=== PATIENT | female | born 1940 | race African-American/Black ===

== ENCOUNTER 2018-02-10 23:44 | Inpatient (IN) | payer MEDICARE ==
[2018-02-11] MEDS ORDERED: Furosemide 20 MG/2 ML VIAL ONE (00:31)
[2018-02-11] MEDS ORDERED: Nitroglycerin 2% Ointment 1 INCH/1 GM Packet ONE (00:31)
[2018-02-11] MEDS ORDERED: Nitroglycerin 0.4 MG TAB (25 Tab Bottle) ONE (00:31)
[2018-02-11 01:15] LABS: Troponin I 0.048 ng/mL (< 0.028)
[2018-02-11] MEDS ORDERED: Ondansetron ODT 4 MG TAB SL PRN (02:10)
[2018-02-11] MEDS ORDERED: Ondansetron HCl/PF 4 MG/2 ML Vial IVP PRN (02:10)
[2018-02-11] MEDS ORDERED: hydrALAZINE 20 MG/ML VIAL SLOW IVP PRN (02:12)
[2018-02-11 02:42] VITALS: BMI 32.8
[2018-02-11] MEDS ORDERED: Nitroglycerin 2% Ointment 1 INCH/1 GM Packet TOP SCH (03:00)
[2018-02-11 04:18] LABS: Troponin I 0.054 ng/mL (< 0.028)
[2018-02-11] MEDS ORDERED: Furosemide 40 MG/4 ML VIAL SLOW IVP SCH (06:00)
[2018-02-11] MEDS ORDERED: Potassium Chloride 20 MEQ TAB PO SCH (08:00)
[2018-02-11] MEDS ORDERED: Senokot 8.6 MG TAB PO PRN (11:01)
[2018-02-11] MEDS ORDERED: Acetaminophen 325 MG TAB PO PRN (11:01)
[2018-02-11] MEDS ORDERED: Guaifenesin DM 100-10/5 ML UDCUP PO PRN (11:01)
[2018-02-11] MEDS: Furosemide 40 MG/4 ML VIAL SLOW IVP SCH (14:30)
--- NOTE | 2018-02-11 16:25 | HP ---
REASON FOR ADMISSION: New onset congestive heart failure exacerbation and new onset atrial fibrillat ion which is rate controlled at present, demand ischemia. HISTORY OF PRESENTING ILLNESS: Patient gives history of swelling of both lower extremities from last 1 week. She also had orthopnea and was unable to sleep last night. She says her physician stopped hydrochlorothiazide in view of falling platelets. This was 3 weeks back. She has also been wheezing from last 2 days. The patient has not experienced any of this before. No complaints of chest pain or palpitation. She normally ambulates by herself. No prior stress test. PAST MEDICAL AND SURGICAL HISTORY: Hypertension. No surgical history. CURRENT MEDICATION: Lopressor 25 mg twice daily. ALLERGIES: PENICILLIN. PERSONAL HISTORY: Does not abuse alcohol or drugs. No history of smoking. FAMILY HISTORY: Mother in her 80s from old age. Father was alcoholic and in his 70s from its complications. The patient has one of 8 siblings, but only one is living. All the other 7 sibli ngs are , one had aneurysm in the brain. Another brother had lung cancer and was a heavy smo ker. Another sibling of old age at the age of 85 years. Had a brother who had cardiac disease and had a defibrillator, due to complications from heart disease at the age of 78 years. She mills s 2 children, older son of diabetes and its complications at the age of 56 years. CODE STATUS: FULL. Power of assistant county attorney is her daughter. REVIEW OF SYSTEMS: The following complete review of systems was negative, unless otherwise mentioned in the HPI or below: Constitutional: Weight loss or gain, ability to conduct usual activities. Skin: Rash, itching. Eyes: Double vision, pain. ENT/Mouth: Nose bleeding, neck stiffness, pain, tenderness. Cardiovascular: Palpitations, dyspnea on exertion, orthopnea. Respiratory: Shortness of breath, wheezing, cough, hemoptysis, fever or night sweats. Gastrointestinal: Poor appetite, abdominal pain, heartburn, nausea, vomiting, constipation, or diarr hea. Genitourinary: Urgency, frequency, dysuria, nocturia. Musculoskeletal: Pain, swelling. Neurologic/Psychiatric: Anxiety, depression. Allergy/Immunologic: Skin rash, bleeding tendency. PHYSICAL EXAMINATION: GENERAL: The patient is a 77-year-old female who is currently not in any acute distress. VITAL SIGNS: Blood pressure 170/76, pulse 76 per minute, respiratory rate 20 per minute, temperature 97.8 degrees Fahrenheit and saturating 94% on room air. NECK: Supple. There is mild elevation in JVD. EYES: Extraocular muscles intact. Pupils reacting to light. ORAL CAVITY: Mucous membranes are moist. No exudates or congestion. CARDIOVASCULAR SYSTEM: S1, S2 heard. Regular rhythm. RESPIRATORY SYSTEM: Air entry 2+ bilaterally. There are basal rales plus. ABDOMEN: Soft, bowel sounds heard. No tenderness, rigidity or guarding. EXTREMITIES: There is 1+ peripheral edema, no calf tenderness. VASCULAR SYSTEM: Peripheral pulses 1+ bilateral, no ischemic ulcerations or gangrene. CENTRAL NERVOUS SYSTEM: No gross focal deficits noted. Patient is alert, awake, oriented well. PSYCHIATRIC SYSTEM: The patient's mood is euthymic. No hallucinations or delusions. IMAGING DATA AND LABORATORY DATA: EKG done shows sinus bradycardia at 59 beats per minute. Her rhyt hm strips show questionable AFIB on the telemetry. White count of 8, hemoglobin and hematocrit 13 an d 42, platelet count 105 with 73% neutrophils, MCV is 85. PT, INR, and PTT within normal limits. Po tassium is 3.1. Serum sodium 147. Serum bicarbonate is 28, BUN 10, creatinine 0.9, total bilirubin 1.6. Liver enzymes within normal limits. Troponin I is indeterminate. She has indeterminate peakin g up to 0.05, CK-MB 1.9. Albumin is 4. BNP is 816. Chest x-ray done shows cardiomegaly. CLINICAL IMPRESSION AND PLAN: The patient will be admitted to telemetry for acute congestive heart f ailure exacerbation, new onset, possible atrial fibrillation and demand ischemia. We will place her on Lovenox 80 mg subcutaneous q.12 along with a low dose aspirin. She will be on Lasix 40 mg IV twic e daily along with small dose of Coreg and Cozaar for now. We will also add a small dose of spironol actone as well. Echo with 2D Doppler for LV function will be obtained. The patient likely will need a stress test at some point when she is more stable. Cardiology consultation with Dr. Hood will be requested today. We will obtain a TSH and uric acid levels in the morning. We will also obtain acute hepatitis panel in view of her thrombocytopenia.
[2018-02-11 17:36] LABS: Platelet Count 100 thou/uL (130-400)
[2018-02-11] MEDS ORDERED: Famotidine 20 MG TAB PO SCH (21:00)
[2018-02-11] MEDS: Carvedilol 3.125 MG TAB PO SCH (21:10)
[2018-02-11] MEDS: Enoxaparin Sodium 80 MG/0.8 ML SYRINGE SC SCH (21:11)
[2018-02-12 04:44] LABS: #Eosinphils 0.2 thou/uL (0.0-0.7); #Lymphocytes 1.4 thou/uL (1.20-3.40); #Monocytes 0.9 thou/uL (0.11-0.59); #Neutrophils 5.4 thou/uL (1.40-6.50); %Basophils 0.4 % (0.0-1.0); %Eosinophils 2.1 % (0.0-10.0); %Lymphocytes 17.9 % (21.0-51.0); %Monocytes 11.2 % (0.0-10.0); %Neutrophils 68.5 % (42.0-75.0); Hemoglobin 14.1 g/dL (12.0-16.0); Mean Corpuscular HGB CONC 32.2 g/dL (32.0-36.0); Mean Corpuscular Hemoglobin 28.4 pg (27.0-31.0); Mean Corpuscular Volume 88.2 fL (78.0-98.0); Platelet Count 94 thou/uL (130-400); RBC Distribution Width 13.3 % (11.5-14.5); Red Blood Cell (RBC) Count 4.96 mill/uL (4.20-5.40); White Blood Cell (WBC) Count 7.9 thou/uL (4.8-10.8)
[2018-02-12 04:53] LABS: Anion Gap 10 mmol/L (10-20); BUN (Urea Nitrogen) 11 mg/dL (9.8-20.1); Calc. Creatinine Clearance 72 mL/min (70-130); Calcium 9.5 mg/dL (7.8-10.44); Carbon Dioxide 37 mmol/L (23-31); Chloride 98 mmol/L (98-107); Estimated GFR-MDRD 68; Glucose 115 mg/dL (83-110); Sodium 142 mmol/L (136-145); Uric Acid 7.3 mg/dL (2.6-6.0)
[2018-02-12 04:56] LABS: Potassium 2.9 mmol/L (3.5-5.1)
[2018-02-12 05:07] LABS: HBCM Index 0.07 S/CO (0-0.79); Hep A IgM AB Non-Reactive (NonReactive); Hep A IgM S/CO 0.14 S/CO (0-0.79); Hep B Surf Ag Non-Reactive S/CO (NonReactive); Hep C IgG Ab Non-Reactive (NonReactive); Hep C Index 0.09 S/CO (0-0.79); Hepatitis B Core IGM Abs Non-Reactive (NonReactive); Thyroid Stimulating Hormone 1.3202 uIU/mL (0.35-4.94)
[2018-02-12] MEDS ORDERED: Potassium Chloride 20 MEQ TAB PO SCH (05:15)
[2018-02-12] MEDS: Furosemide 40 MG/4 ML VIAL SLOW IVP SCH ×2 (05:37→14:15)
[2018-02-12] MEDS: Enoxaparin Sodium 80 MG/0.8 ML SYRINGE SC SCH ×2 (09:23→21:56)
[2018-02-12] MEDS: Potassium Chloride 20 MEQ TAB PO SCH ×3 (09:29→21:57)
[2018-02-12] MEDS: Spironolactone 25 MG TAB PO SCH (09:30)
[2018-02-12] MEDS: Famotidine 20 MG TAB PO SCH (09:30)
[2018-02-12] MEDS: Losartan 25 MG TAB PO SCH (09:30)
[2018-02-12] MEDS: Carvedilol 3.125 MG TAB PO SCH ×2 (09:30→21:57)
--- NOTE | 2018-02-12 12:13 | PDOC.PN ---
- Subjective Encounter Start Date: 02/12/18 Encounter Start Time: 09:40 Subjective: sob is better, swelling in her feet and ankle are clearing up -: no chest pain or palp - Objective Resuscitation Status: Resuscitation Status FULL:Full Resuscitation MAR Reviewed: Yes Vital Signs & Weight: Vital Signs (12 hours) Temp Pulse Pulse Pulse Resp BP BP 02/12/18 11:01 98.7 F 83 18 02/12/18 08:46 81 93 133/86 166/86 H 02/12/18 08:00 98.1 F 68 18 02/12/18 03:57 97.5 F L 97 22 H BP Pulse Ox Pulse Ox Pulse Ox 02/12/18 11:01 117/66 93 L 02/12/18 08:46 93 L 93 L 02/12/18 08:00 126/72 94 L 02/12/18 03:57 138/71 94 L Weight Admit Weight 203 lb Weight 191 lb 8 oz I&O: 02/11/18 02/12/18 02/13/18 06:59 06:59 06:59 Intake Total 0 1060 240 Output Total 19995 Balance -1999131 240 Result Diagrams: 02/12/18 03:45 02/12/18 03:45 Phys Exam - Physical Examination HEENT: PERRLA, moist MMs Neck: no JVD, supple Respiratory: no wheezing basal rales+ Cardiovascular: RRR, no significant murmur Gastrointestinal: soft, non-tender, positive bowel sounds Musculoskeletal: no edema, pulses present Neurological: non-focal, moves all 4 limbs Psychiatric: normal affect, A&O x 3 Dx/Plan (1) Acute exacerbation of CHF (congestive heart failure) Code(s): I50.9 - HEART FAILURE, UNSPECIFIED Status: Acute Qualifiers: Heart failure type: unspecified Qualified Code(s): I50.9 - Heart failure, unspecified (2) HTN (hypertension) Code(s): I10 - ESSENTIAL (PRIMARY) HYPERTENSION Status: Chronic Qualifiers: Hypertension type: essential hypertension Qualified Code(s): I10 - Essential (primary) hypertension (3) Demand ischemia of myocardium Code(s): I24.8 - OTHER FORMS OF ACUTE ISCHEMIC HEART DISEASE Status: Acute - Plan await echo results, in sinus rhythm now -: may dc lovenox if ok with -: is on lasix iv, coreg, cozaar -: lipid panel in am, diuresing well -: will likely need stress test * . Review of Systems - Medications/Allergies Allergies/Adverse Reactions: Allergies Allergy/AdvReac Type Severity Reaction Status Date / Time penicillin G Allergy Rash Verified 02/11/18 02:53 Medications: Current Medications Acetaminophen (Tylenol) 650 mg PO Q4H PRN PRN Reason: Headache/Fever or Pain Aspirin (Aspirin Chewable) 81 mg PO DAILY [facility] Last Admin: 02/12/18 09:29 Dose: 81 mg Carvedilol (Coreg) 3.125 mg PO BID [facility] Last Admin: 02/12/18 09:30 Dose: 3.125 mg Enoxaparin Sodium (Lovenox) 80 mg SC 0900,2100 [facility] Last Admin: 02/12/18 09:23 Dose: Not Given Famotidine (Pepcid) 20 mg PO DAILY [facility] Last Admin: 02/12/18 09:30 Dose: 20 mg Furosemide (Lasix) 40 mg SLOW IVP 0600,1400 [facility] Last Admin: 02/12/18 05:37 Dose: 40 mg Guaifenesin/Dextromethorphan (Robitussin Dm) 15 ml PO Q4H PRN PRN Reason: Cough Losartan Potassium (Cozaar) 12.5 mg PO DAILY [facility] Last Admin: 02/12/18 09:30 Dose: 12.5 mg Potassium Chloride (K-Dur) 40 meq PO Q6H [facility] Stop: 02/13/18 14:01 Last Admin: 02/12/18 09:29 Dose: 40 meq Senna (Senokot) 2 tab PO HSPRN PRN PRN Reason: Constipation Spironolactone (Aldactone) 12.5 mg PO DAILY [facility] Last Admin: 02/12/18 09:30 Dose: 12.5 mg
[2018-02-12] MEDS ORDERED: Sodium Chloride 0.9% 10 ML ONE (20:25)
[2018-02-13] MEDS: Potassium Chloride 20 MEQ TAB PO SCH (03:32)
[2018-02-13 05:08] LABS: Anion Gap 17 mmol/L (10-20); BUN (Urea Nitrogen) 16 mg/dL (9.8-20.1); Calc. Creatinine Clearance 59 mL/min (70-130); Carbon Dioxide 29 mmol/L (23-31); Cardiac Risk 3.2 (Less than 4.5); Chloride 99 mmol/L (98-107); Cholesterol 167 mg/dl (< 200 Desired); Estimated GFR-MDRD 58; Glucose 85 mg/dL (83-110); HDL Cholesterol 53 mg/dL (>60 Neg Risk); LDL Cholesterol, Calculated 99 mg/dL; Potassium 4.7 mmol/L (3.5-5.1); Sodium 140 mmol/L (136-145); Triglycerides 77 mg/dL (Less than 150)
[2018-02-13] MEDS ORDERED: Sodium Chloride 0.9% 10 ML ONE ×2 (05:52→05:53)
[2018-02-13] MEDS: Furosemide 40 MG/4 ML VIAL SLOW IVP SCH (06:28)
--- NOTE | 2018-02-13 10:02 | PDOC.PN ---
- Subjective Encounter Start Date: 02/13/18 Encounter Start Time: 09:15 Subjective: no sob or chest pain or palp -: feels better, is amb in hallway - Objective Resuscitation Status: Resuscitation Status FULL:Full Resuscitation MAR Reviewed: Yes Vital Signs & Weight: Vital Signs (12 hours) Temp Pulse Resp BP BP Pulse Ox 02/13/18 08:58 98.7 F 81 20 122/87 97 02/13/18 03:32 97.7 F 78 20 169/92 H 96 02/12/18 23:58 98.7 F 73 16 134/83 95 Weight Admit Weight 203 lb Weight 192 lb 3.2 oz I&O: 02/12/18 02/13/18 02/14/18 06:59 06:59 06:59 Intake Total 1060 904 Output Total 9099 1970 1000 Balance -1315 -1796 -1000 Result Diagrams: 02/12/18 03:45 02/13/18 03:50 Phys Exam - Physical Examination HEENT: PERRLA, moist MMs Neck: no JVD, supple Respiratory: no wheezing, no rales Cardiovascular: RRR, no significant murmur Gastrointestinal: soft, non-tender, positive bowel sounds Musculoskeletal: no edema, pulses present Neurological: non-focal, moves all 4 limbs Psychiatric: normal affect, A&O x 3 Dx/Plan (1) Acute exacerbation of CHF (congestive heart failure) Code(s): I50.9 - HEART FAILURE, UNSPECIFIED Status: Acute Qualifiers: Heart failure type: diastolic Qualified Code(s): I50.33 - Acute on chronic diastolic (congestive) heart failure (2) HTN (hypertension) Code(s): I10 - ESSENTIAL (PRIMARY) HYPERTENSION Status: Chronic Qualifiers: Hypertension type: essential hypertension Qualified Code(s): I10 - Essential (primary) hypertension (3) Demand ischemia of myocardium Code(s): I24.8 - OTHER FORMS OF ACUTE ISCHEMIC HEART DISEASE Status: Acute - Plan ef is 50%, needs repeat echo due to poor quality per cardio -: dc plan per cardio advice -: will need outpt PFT's, has freq pac's on ekg -: stress test/cath per cardio advice -: dc plan per cardiology * . Review of Systems - Medications/Allergies Allergies/Adverse Reactions: Allergies Allergy/AdvReac Type Severity Reaction Status Date / Time penicillin G Allergy Rash Verified 02/11/18 02:53 Medications: Current Medications Acetaminophen (Tylenol) 650 mg PO Q4H PRN PRN Reason: Headache/Fever or Pain Aspirin (Aspirin Chewable) 81 mg PO DAILY [facility] Last Admin: 02/12/18 09:29 Dose: 81 mg Carvedilol (Coreg) 3.125 mg PO BID [facility] Last Admin: 02/12/18 21:57 Dose: 3.125 mg Famotidine (Pepcid) 20 mg PO DAILY [facility] Last Admin: 02/12/18 09:30 Dose: 20 mg Furosemide (Lasix) 40 mg PO DAILY[facility] Guaifenesin/Dextromethorphan (Robitussin Dm) 15 ml PO Q4H PRN PRN Reason: Cough Losartan Potassium (Cozaar) 12.5 mg PO DAILY [facility] Last Admin: 02/12/18 09:30 Dose: 12.5 mg Senna (Senokot) 2 tab PO HSPRN PRN PRN Reason: Constipation Spironolactone (Aldactone) 12.5 mg PO DAILY [facility] Last Admin: 02/12/18 09:30 Dose: 12.5 mg
[2018-02-13] MEDS: Losartan 25 MG TAB PO SCH (10:24)
[2018-02-13] MEDS: Spironolactone 25 MG TAB PO SCH (10:25)
[2018-02-13] MEDS: Furosemide 40 MG TAB PO SCH (10:26)
[2018-02-13] MEDS: Carvedilol 3.125 MG TAB PO SCH ×2 (10:26→19:44)
[2018-02-13] MEDS: Famotidine 20 MG TAB PO SCH (10:26)
[2018-02-13 17:11] LABS: Hemoglobin 16.6 g/dL (12.0-16.0); Platelet Count 108 thou/uL (130-400)
--- NOTE | 2018-02-13 18:35 | CON ---
DATE OF CONSULTATION: 02/13/2018 HISTORY OF PRESENT ILLNESS: Galilea Penny is a 77-year-old black female, who has a longstanding history of hypertension. She has had thrombocytopenia and one of her blood pressure medicines was stopped as well as hydrochlorothiazide. She states over the last 2-3 weeks, she has had increasing peripheral edema as well as increasing shortness of breath. At times, she would feel her heart beating very rapidly if she tried to over exert herself. She denied ever having any chest pressure or tightness. Since being in the hospital, she has had episodes of paroxysmal atrial fibrillation versus wandering atrial pacemaker. At times with this, she would have heart rates of 170-180; however, the episodes would only last 7-8 seconds. Over the last 36 hours, since she has been diuresed and placed on carvedilol, she has not had any further recurrences. PAST MEDICAL HISTORY: Hypertension. She denies any history of diabetes or hypercholesterolemia. MEDICATION: Metoprolol 25 mg b.i.d. ALLERGIES: PENICILLIN. OPERATIONS: None. SOCIAL HISTORY: She does not smoke or drink. FAMILY HISTORY: Negative for coronary artery disease. REVIEW OF SYSTEMS: Twelve-point review of systems, otherwise is unremarkable. PHYSICAL EXAMINATION: VITAL SIGNS: Blood pressure 122/87, pulse of 81. HEENT: PERRL. NECK: Supple. LUNGS: Chest is clear. CARDIAC: S1, S2 normal without any S3, S4 or murmurs. Carotid upstrokes normal without bruits. ABDOMEN: Normal bowel sounds without tenderness or organomegaly. The abdomen is obese. EXTREMITIES: Revealed no clubbing, cyanosis or edema. NEUROLOGIC: Grossly intact. SKIN: Warm and dry. LABORATORY DATA AND IMAGING: EKG on admission revealed normal sinus rhythm with sinus arrhythmia and no acute changes. Troponin I is up to 0.054. BNP 816.1. Sodium 140, potassium 4.7, chloride 99, carbon dioxide 29, BUN 16, creatinine 1.11. Cholesterol 167, triglycerides 77, HDL 53, LDL 99. TSH is normal. Hemoglobin 14.1, hematocrit 43.8, white count 7900, platelets 94,000. INR 1.1. Echocardiogram was technically difficult with ejection fraction of 50 % to 55%, mild left atrial enlargement, mild to moderate tricuspid regurgitation. Chest x-ray revealed cardiomegaly. IMPRESSION: 1. Acute on chronic diastolic heart failure. 2. Paroxysmal atrial arrhythmias - this does appear to be either atrial fibrillation or multifocal atrial tachycardia or wandering atrial pacemaker. There is lot of baseline artifact, difficult to tell. However, after diuresis and started on carvedilol, she has not had any further episodes in over 36 hours. 3. Borderline elevated troponin I, probably secondary to demand ischemia. RECOMMENDATIONS: The patient will continue to be monitored. With her paroxysmal atrial arrhythmias, I do feel that she should be on long-term anticoagulation. Since she has not had any episodes since diuresis, I would not start any more potent antiarrhythmic at the present time. She will undergo Lexiscan Cardiolite testing to rule out a significant myocardial ischemia. If this is negative, then she may be transitioned over to oral anticoagulants. CHARMAINE
[2018-02-14 05:18] LABS: Anion Gap 17 mmol/L (10-20); BUN (Urea Nitrogen) 21 mg/dL (9.8-20.1); Calc. Creatinine Clearance 55 mL/min (70-130); Calcium 10.2 mg/dL (7.8-10.44); Carbon Dioxide 30 mmol/L (23-31); Chloride 98 mmol/L (98-107); Estimated GFR-MDRD 53; Glucose 78 mg/dL (83-110); Potassium 4.6 mmol/L (3.5-5.1); Sodium 140 mmol/L (136-145)
[2018-02-14] MEDS ORDERED: Sodium Chloride 0.9% 1,000 ML IV SCH (08:00)
[2018-02-14] MEDS: Furosemide 40 MG TAB PO SCH (08:05)
[2018-02-14] MEDS ORDERED: Regadenoson 0.4 MG/5 ML SYRINGE ONE (11:13)
[2018-02-14] MEDS: Famotidine 20 MG TAB PO SCH (11:31)
[2018-02-14] MEDS: Losartan 25 MG TAB PO SCH (11:31)
[2018-02-14] MEDS: Carvedilol 3.125 MG TAB PO SCH ×2 (11:31→19:34)
--- NOTE | 2018-02-14 12:13 | PDOC.PN ---
- Subjective Encounter Start Date: 02/14/18 Encounter Start Time: 09:20 Subjective: feels better, is getting stress test done - Objective Resuscitation Status: Resuscitation Status FULL:Full Resuscitation MAR Reviewed: Yes Vital Signs & Weight: Vital Signs (12 hours) Temp Pulse Resp BP BP Pulse Ox 02/14/18 11:35 97.5 F L 83 17 134/95 H 02/14/18 08:00 96.8 F L 66 17 125/82 96 02/14/18 04:00 98.5 F 65 18 138/81 93 L Weight Admit Weight 203 lb Weight 193 lb 4.8 oz I&O: 02/13/18 02/14/18 02/15/18 06:59 06:59 06:59 Intake Total 904 460 Output Total 2700 1800 Balance -1796 -1340 Result Diagrams: 02/13/18 16:54 02/14/18 03:42 Phys Exam - Physical Examination HEENT: PERRLA, moist MMs Neck: no JVD, supple Respiratory: no wheezing, no rales Cardiovascular: RRR, no significant murmur Gastrointestinal: soft, non-tender, positive bowel sounds Musculoskeletal: no edema, pulses present Neurological: non-focal, moves all 4 limbs Psychiatric: normal affect, A&O x 3 Dx/Plan (1) Acute exacerbation of CHF (congestive heart failure) Code(s): I50.9 - HEART FAILURE, UNSPECIFIED Status: Acute Qualifiers: Heart failure type: diastolic Qualified Code(s): I50.33 - Acute on chronic diastolic (congestive) heart failure (2) HTN (hypertension) Code(s): I10 - ESSENTIAL (PRIMARY) HYPERTENSION Status: Chronic Qualifiers: Hypertension type: essential hypertension Qualified Code(s): I10 - Essential (primary) hypertension (3) Demand ischemia of myocardium Code(s): I24.8 - OTHER FORMS OF ACUTE ISCHEMIC HEART DISEASE Status: Acute - Plan await stress test results -: anticoagulation on dc per cardio advice -: is on asp, coreg. -: Give 1 liter normal saline, got volume depleted (h/h ) with diuresis -: dc plan per cardio advice, likely home today if stress test iv -ve * . ?event monitor to r/o underlying atrial arrhythmias. Review of Systems - Medications/Allergies Allergies/Adverse Reactions: Allergies Allergy/AdvReac Type Severity Reaction Status Date / Time penicillin G Allergy Rash Verified 02/11/18 02:53 Medications: Current Medications Acetaminophen (Tylenol) 650 mg PO Q4H PRN PRN Reason: Headache/Fever or Pain Aspirin (Aspirin Chewable) 81 mg PO DAILY [facility] Last Admin: 02/14/18 11:31 Dose: 81 mg Carvedilol (Coreg) 3.125 mg PO BID [facility] Last Admin: 02/14/18 11:31 Dose: 3.125 mg Famotidine (Pepcid) 20 mg PO DAILY [facility] Last Admin: 02/14/18 11:31 Dose: 20 mg Guaifenesin/Dextromethorphan (Robitussin Dm) 15 ml PO Q4H PRN PRN Reason: Cough Sodium Chloride (Normal Saline 0.9%) 1,000 mls @ 50 mls/hr IV .Q20H [facility] Stop: 02/15/18 03:59 Last Admin: 02/14/18 11:32 Dose: 1,000 mls Losartan Potassium (Cozaar) 12.5 mg PO DAILY [facility] Last Admin: 02/14/18 11:31 Dose: 12.5 mg Senna (Senokot) 2 tab PO HSPRN PRN PRN Reason: Constipation Sodium Chloride (Flush - Normal Saline) 10 ml IVF Q12HR [facility] Last Admin: 02/14/18 11:31 Dose: 10 ml Sodium Chloride (Flush - Normal Saline) 10 ml IVF PRN PRN PRN Reason: Saline Flush
--- NOTE | 2018-02-14 13:31 | NM ---
NUCLEAR MEDICINE MYOCARDIAL PERFUSION EVALUATION: Clinical history: CHF in a 77-year-old female. Comparison: None. FINDINGS: Utilizing stress and rest imaging with attenuation correction, there is no significant perfusion defe ct of the left ventricular varma demonstrated. Gated imaging reveals wall motion and contractility. T here is a low normal EF at approximately 54%. IMPRESSION: 1. No scintigraphic evidence to confirm significant area of ischemia or scar. 2. Borderline LVEF at 54%. Correlation with echocardiogram may prove useful, as necessary. POS: ALICE
[2018-02-14] MEDS: Apixaban 5 MG TAB PO SCH (19:34)
[2018-02-15 06:00] LABS: Anion Gap 9 mmol/L (10-20); BUN (Urea Nitrogen) 24 mg/dL (9.8-20.1); Calc. Creatinine Clearance 61 mL/min (70-130); Calcium 9.2 mg/dL (7.8-10.44); Carbon Dioxide 34 mmol/L (23-31); Chloride 100 mmol/L (98-107); Estimated GFR-MDRD 60; Glucose 86 mg/dL (83-110); Potassium 3.8 mmol/L (3.5-5.1); Sodium 139 mmol/L (136-145)
[2018-02-15] MEDS: Apixaban 5 MG TAB PO SCH (09:06)
[2018-02-15] MEDS: Losartan 25 MG TAB PO SCH (09:06)
[2018-02-15] MEDS: Famotidine 20 MG TAB PO SCH (09:06)
[2018-02-15] MEDS: Carvedilol 3.125 MG TAB PO SCH (09:07)
[2018-02-15 12:40] VITALS: BP 140/88; TEMP 97.1
--- NOTE | 2018-02-15 14:41 | DIS ---
DATE OF ADMISSION: 02/11/2018 DATE OF DISCHARGE: 02/15/2018. PRIMARY CARE PROVIDER: Gayle Watkins M.D. DISCHARGE DIAGNOSES: 1. Acute on chronic diastolic heart failure Class C. 2. Paroxysmal atrial arrhythmias. CONDITION OF PATIENT ON THE DAY OF DISCHARGE: Stable. I assessed Mr. Penny on the day of discharge. She denies any chest pain or shortness of breath. Vital signs are stable. S1 and S2 are heard, regular. Lungs are clear to auscultation bilaterally. CONSULTATION DURING THIS HOSPITALIZATION: Cardiology, Dr. Elizondo. DISCHARGE MEDICATIONS: Eliquis 5 mg 2 times a day, calcium carbonate/vitamin D3 one tablet daily, Coreg 3.125 mg 2 times a day, furosemide 20 mg daily, spironolactone 12.5 mg daily. HOSPITAL COURSE: Ms. Penny is a pleasant 77-year-old lady who was admitted to [facility] on 02/11/2018 for congestive heart failure exacerbation and paroxysmal atrial fibrillation versus wandering atrial pacemaker. She was started on Lovenox. She was also started on diuretics. She was seen by Cardiology Service. A 2D echocardiogram on 02/12/2018 showed left ventricular ejection fraction of 50%-55%, mildly dilated left atrium, normal left ventricular size and mild to moderate tricuspid regurgitation. She also had indeterminate troponin I. She therefore underwent a nuclear stress test on 02/13/2018. There was no scintigraphic evidence to confirm significant area of ischemia or scar. Left ventricular ejection fraction was 54 %. She is advised to have her blood pressure and heart rate checked 3 times a day and showed the readings to her primary care provider. She will also need her creatinine and electrolytes checked in approximately a week's time. Because she has been started on spironolactone, I have asked her to discontinue potassium which she was taking prior to this admission. Also, she has been started on Coreg during this hospitalization and therefore her metoprolol was discontinued. On the day of discharge, she has normal sodium, normal potassium, normal creatinine of 1.08, creatinine had peaked to 1.19 on 02/14/2018, hemoglobin 16.6 , and platelet count 108,000. Many thanks for allowing me to participate in your patient's care. Please feel free to contact me with any questions or concerns. DISCHARGE DESTINATION: Home. TOTAL AMOUNT OF TIME SPENT COORDINATING THIS DISCHARGE: 33 minutes. MTDD
== END 2018-02-15 13:11 | disposition home or self-care (01) | DRG 292 ==
LOC: ERS 23:44 → 2NO 02-11 00:38
PROVIDERS: ADMIT Hospitalist; ATTEND Hospitalist
DX: I11.0 Hypertensive heart disease with heart failure (principal); I24.8 Other forms of acute ischemic heart disease; I50.33 Acute on chronic diastolic (congestive) heart failure; I48.0 Paroxysmal atrial fibrillation; I07.1 Rheumatic tricuspid insufficiency; E87.5 Hyperkalemia; I16.0 Hypertensive urgency; D69.6 Thrombocytopenia, unspecified; Z79.899 Other long term (current) drug therapy; Z88.0 Allergy status to penicillin
CPT/HCPCS: 36415; 78452; 80048; 80061; 80074; 84443; 84484; 84550; 85014; 85018; 85025; 85049; 93005; 93017; 93306; 93798; 96374; A4216; A9500; J0360; J1650; J1940; J2785

== ENCOUNTER 2018-06-24 01:11 | Emergency (ER) | payer MEDICARE ==
[2018-06-24] MEDS ORDERED: Oxymetazoline HCl 0.05% ( 15 ML ) ONE (01:25)
[2018-06-24] MEDS ORDERED: cloNIDine 0.1 MG TAB ONE (01:32)
== END 2018-06-24 02:15 | disposition home or self-care (01) ==
LOC: ERS 01:11
DX: R04.0 Epistaxis (principal); I10 Essential (primary) hypertension; Z79.899 Other long term (current) drug therapy
CPT/HCPCS: 99283

== ENCOUNTER 2021-03-11 10:46 | Day surgery (SDC) | payer MEDICARE ==
[2021-03-09 14:55] VITALS: BMI 28.0
[2021-03-11 12:06] LABS: Mean Corpuscular HGB CONC 30.8 g/dL (32.0-36.0); Mean Corpuscular Hemoglobin 28.2 pg (27.0-31.0); Mean Corpuscular Volume 91.6 fL (78.0-98.0); Mean Platelet Volume 8.2 fL (7.4-10.4); Platelet Count 155 thou/uL (130-400); RBC Distribution Width 13.3 % (11.5-14.5); Red Blood Cell (RBC) Count 4.96 mill/uL (4.20-5.40); White Blood Cell (WBC) Count 7.3 thou/uL (4.8-10.8)
[2021-03-11 12:25] LABS: Anion Gap 11 mmol/L (10-20); BUN (Urea Nitrogen) 15 mg/dL (9.8-20.1); Calc. Creatinine Clearance 43 mL/min (70-130); Calcium 9.4 mg/dL (7.8-10.44); Carbon Dioxide 31 mmol/L (23-31); Chloride 101 mmol/L (98-107); Glucose 91 mg/dL (83-110); Potassium 3.1 mmol/L (3.5-5.1); Sodium 140 mmol/L (136-145)
[2021-03-11] MEDS ORDERED: PROPOFOL 200 MG/20 ML VIAL ONE (13:10)
[2021-03-11] MEDS ORDERED: Potassium Chloride 20 MEQ TAB PO SCH (15:15)
== END 2021-03-11 15:43 | disposition home or self-care (01) ==
LOC: SDC 10:46
PROVIDERS: ATTEND Internal Medicine Cardiovascular Disease
PROC: 5A2204Z Restoration of Cardiac Rhythm, Single (ICD-10-PCS; principal; 2021-03-11)
DX: I48.0 Paroxysmal atrial fibrillation (principal); I11.0 Hypertensive heart disease with heart failure; I50.30 Unspecified diastolic (congestive) heart failure; I35.0 Nonrheumatic aortic (valve) stenosis; Z79.01 Long term (current) use of anticoagulants; Z79.899 Other long term (current) drug therapy; Z88.0 Allergy status to penicillin
CPT/HCPCS: 36415; 80048; 85027; 92960; 93005; 93010; J2704

== ENCOUNTER 2021-03-21 08:25 | Emergency (ER) | payer MEDICARE ==
[2021-03-21 09:06] LABS: #Eosinphils 0.3 thou/uL (0.0-0.7); #Lymphocytes 1.3 thou/uL (1.20-3.40); #Monocytes 0.6 thou/uL (0.11-0.59); #Neutrophils 4.7 thou/uL (1.40-6.50); %Basophils 0.1 % (0.0-1.0); %Eosinophils 4.3 % (0.0-10.0); %Lymphocytes 18.5 % (21.0-51.0); %Monocytes 9.2 % (0.0-10.0); %Neutrophils 67.8 % (42.0-75.0); Hemoglobin 14.9 g/dL (12.0-16.0); Mean Corpuscular Hemoglobin 27.9 pg (27.0-31.0); Mean Platelet Volume 8.2 fL (7.4-10.4); Platelet Count 144 thou/uL (130-400); RBC Distribution Width 13.3 % (11.5-14.5); Red Blood Cell (RBC) Count 5.33 mill/uL (4.20-5.40); White Blood Cell (WBC) Count 6.9 thou/uL (4.8-10.8)
[2021-03-21 09:27] LABS: ALT (SGPT) 10 U/L (8-55); AST (SGOT) 13 U/L (5-34); Albumin 3.8 g/dL (3.4-4.8); Alkaline Phosphatase 95 U/L (40-110); Anion Gap 8 mmol/L (10-20); BUN (Urea Nitrogen) 11 mg/dL (9.8-20.1); Bilirubin, Total 1.3 mg/dL (0.2-1.2); Calc. Creatinine Clearance 0 mL/min (70-130); Calcium 9.4 mg/dL (7.8-10.44); Carbon Dioxide 34 mmol/L (23-31); Chloride 103 mmol/L (98-107); Globulin 2.8 g/dL (2.4-3.5); Glucose 92 mg/dL (83-110); Potassium 3.5 mmol/L (3.5-5.1); Protein, Total 6.6 g/dL (5.8-8.1); Sodium 141 mmol/L (136-145)
== END 2021-03-21 11:03 | disposition home or self-care (01) ==
LOC: ERS 08:25
DX: I48.91 Unspecified atrial fibrillation (principal); I10 Essential (primary) hypertension; Z79.01 Long term (current) use of anticoagulants; Z79.899 Other long term (current) drug therapy
CPT/HCPCS: 36415; 71045; 80053; 84484; 85025; 93005

== ENCOUNTER 2021-05-21 19:49 | Observation (INO) | payer MEDICARE ==
[2021-05-21 20:34] LABS: #Eosinphils 0.1 thou/uL (0.0-0.7); #Lymphocytes 1.3 thou/uL (1.20-3.40); #Monocytes 0.6 thou/uL (0.11-0.59); #Neutrophils 4.8 thou/uL (1.40-6.50); %Basophils 0.1 % (0.0-1.0); %Eosinophils 2.1 % (0.0-10.0); %Monocytes 8.4 % (0.0-10.0); %Neutrophils 70.4 % (42.0-75.0); Hemoglobin 14.7 g/dL (12.0-16.0); Mean Corpuscular HGB CONC 31.6 g/dL (32.0-36.0); Mean Corpuscular Hemoglobin 28.4 pg (27.0-31.0); Mean Corpuscular Volume 89.8 fL (78.0-98.0); Mean Platelet Volume 8.1 fL (7.4-10.4); Platelet Count 151 thou/uL (130-400); RBC Distribution Width 13.7 % (11.5-14.5); Red Blood Cell (RBC) Count 5.19 mill/uL (4.20-5.40); White Blood Cell (WBC) Count 6.8 thou/uL (4.8-10.8)
[2021-05-21 21:07] LABS: ALT (SGPT) 8 U/L (8-55); AST (SGOT) 14 U/L (5-34); Albumin 3.8 g/dL (3.4-4.8); Alkaline Phosphatase 103 U/L (40-110); Anion Gap 12 mmol/L (10-20); BUN (Urea Nitrogen) 12 mg/dL (9.8-20.1); Calc. Creatinine Clearance 0 mL/min (70-130); Calcium 9.4 mg/dL (7.8-10.44); Carbon Dioxide 29 mmol/L (23-31); Chloride 104 mmol/L (98-107); Globulin 2.6 g/dL (2.4-3.5); Glucose 122 mg/dL (83-110); Magnesium 2.2 mg/dL (1.6-2.6); Potassium 4.4 mmol/L (3.5-5.1); Protein, Total 6.4 g/dL (5.8-8.1); Sodium 141 mmol/L (136-145)
[2021-05-21 21:14] LABS: CKMB 1.3 ng/mL (0-6.6)
[2021-05-22 00:02] LABS: Troponin I 0.032 ng/mL (< 0.028)
[2021-05-22] MEDS ORDERED: Nitroglycerin 0.4 MG TAB (25 Tab Bottle) SL PRN (00:37)
[2021-05-22] MEDS ORDERED: Acetaminophen 325 MG TAB PO PRN (00:37)
[2021-05-22 01:17] LABS: SARS-CoV-2 NAA Rapid Test Not Detected (NotDetected)
[2021-05-22 02:21] LABS: #Eosinphils 0.2 thou/uL (0.0-0.7); #Lymphocytes 1.9 thou/uL (1.20-3.40); #Monocytes 0.7 thou/uL (0.11-0.59); #Neutrophils 4.7 thou/uL (1.40-6.50); %Basophils 0.4 % (0.0-1.0); %Eosinophils 2.6 % (0.0-10.0); %Lymphocytes 25.2 % (21.0-51.0); %Monocytes 9.7 % (0.0-10.0); %Neutrophils 62.1 % (42.0-75.0); Mean Corpuscular HGB CONC 32.5 g/dL (32.0-36.0); Mean Corpuscular Hemoglobin 29.1 pg (27.0-31.0); Mean Corpuscular Volume 89.5 fL (78.0-98.0); Platelet Count 137 thou/uL (130-400); RBC Distribution Width 13.8 % (11.5-14.5); Red Blood Cell (RBC) Count 4.81 mill/uL (4.20-5.40); White Blood Cell (WBC) Count 7.6 thou/uL (4.8-10.8)
[2021-05-22 02:45] LABS: Troponin I 0.029 ng/mL (< 0.028)
[2021-05-22 03:03] LABS: Anion Gap 13 mmol/L (10-20); BUN (Urea Nitrogen) 12 mg/dL (9.8-20.1); Calc. Creatinine Clearance 57 mL/min (70-130); Calcium 8.7 mg/dL (7.8-10.44); Carbon Dioxide 23 mmol/L (23-31); Cardiac Risk 3.1 (Less than 4.5); Chloride 106 mmol/L (98-107); Cholesterol 156 mg/dl (< 200 Desired); Glucose 97 mg/dL (83-110); HDL Cholesterol 51 mg/dL (>60 Neg Risk); LDL Cholesterol, Calculated 97 mg/dL; Potassium 4.1 mmol/L (3.5-5.1); Sodium 138 mmol/L (136-145); Triglycerides 40 mg/dL (Less than 150)
[2021-05-22] MEDS: Sodium Chloride 0.9% 1,000 ML IV SCH ×2 (08:24→15:31)
[2021-05-22] MEDS ORDERED: Apixaban 5 MG TAB PO SCH ×2 (10:15→21:00)
[2021-05-22] MEDS ORDERED: Flecainide 50 MG TAB PO SCH ×2 (10:15→21:00)
[2021-05-22 12:11] VITALS: BMI 28.0
[2021-05-22 16:03] VITALS: BP 174/81; TEMP 98.1
[2021-05-22] MEDS ORDERED: Carvedilol 3.125 MG TAB PO SCH (21:00)
[2021-05-25] MEDS ORDERED: FLU VACC QS2021-22(65YR UP)/PF 240 MCG/0.7 ML SYRINGE IM ONE (09:00)
== END 2021-05-22 17:45 | disposition home or self-care (01) ==
LOC: ERS 19:49 → ERHOLD 23:02 → 2NO 05-22 11:11
PROVIDERS: ADMIT Student in an Organized Health Care Education/Training Program; ATTEND Physician Assistant
DX: R00.2 Palpitations (principal); R77.8 Other specified abnormalities of plasma proteins; N17.9 Acute kidney failure, unspecified; I11.0 Hypertensive heart disease with heart failure; I50.32 Chronic diastolic (congestive) heart failure; I48.0 Paroxysmal atrial fibrillation; Z20.822 Contact with and (suspected) exposure to COVID-19; Z88.0 Allergy status to penicillin; Z79.01 Long term (current) use of anticoagulants; Z79.899 Other long term (current) drug therapy
CPT/HCPCS: 71045; 80048; 80061; 82553; 83735; 84484 ×3; 85025; 93005; 99285; U0002; 36415; 80053; 84443; G0378; J7050

== ENCOUNTER 2023-02-18 21:58 | Emergency (ER) | payer MEDICARE ==
[2023-02-18 22:56] LABS: #Eosinphils 0.1 thou/uL (0.0-0.7); #Monocytes 0.7 thou/uL (0.11-0.59); #Neutrophils 4.9 thou/uL (1.40-6.50); %Eosinophils 1.7 % (0.0-10.0); %Lymphocytes 19.6 % (21.0-51.0); %Neutrophils 68.4 % (42.0-75.0); Hemoglobin 14.5 g/dL (12.0-16.0); Mean Corpuscular HGB CONC 32.6 g/dL (32.0-36.0); Mean Corpuscular Hemoglobin 28.7 pg (27.0-31.0); Mean Corpuscular Volume 87.9 fl (78.0-98.0); Mean Platelet Volume 10.7 fL (7.4-10.4); Platelet Count 133 10x3/uL (130-400); RBC Distribution Width 14.1 % (11.5-14.5); Red Blood Cell (RBC) Count 5.06 mill/uL (4.20-5.40); White Blood Cell (WBC) Count 7.2 10x3/uL (4.8-10.8)
[2023-02-18 23:04] LABS: ALT (SGPT) 16 U/L (8-55); AST (SGOT) 21 U/L (5-34); Albumin 4.2 g/dL (3.4-4.8); Alkaline Phosphatase 94 U/L (40-110); Anion Gap 18 mmol/L (10-20); BUN (Urea Nitrogen) 15 mg/dL (9.8-20.1); Bilirubin, Total 1.4 mg/dL (0.2-1.2); Calc. Creatinine Clearance 0 mL/min (70-130); Carbon Dioxide 23 mmol/L (23-31); Chloride 100 mmol/L (98-107); Estimated GFR 45; Globulin 2.8 g/dL (2.4-3.5); Glucose 84 mg/dL (83-110); Potassium 3.9 mmol/L (3.5-5.1); Sodium 137 mmol/L (136-145)
[2023-02-18 23:27] LABS: CKMB 1.9 ng/mL (0-6.6)
== END 2023-02-18 23:51 | disposition home or self-care (01) ==
LOC: ERS 21:58
DX: I48.91 Unspecified atrial fibrillation (principal); I11.0 Hypertensive heart disease with heart failure; I50.9 Heart failure, unspecified; Z79.899 Other long term (current) drug therapy; Z79.01 Long term (current) use of anticoagulants
CPT/HCPCS: 80053; 82553; 84443; 84484; 85025; 93005

== ENCOUNTER 2023-07-13 16:58 | Inpatient (IN) | payer MEDICARE ==
[2023-07-13] MEDS ORDERED: Furosemide 40 MG/4 ML VIAL ONE (17:18)
[2023-07-13] MEDS ORDERED: dilTIAZem 125 MG/25 ML SDV ONE ×2 (17:19→18:10)
[2023-07-13 17:43] LABS: #Eosinphils 0.2 thou/uL (0.0-0.7); #Monocytes 0.7 thou/uL (0.11-0.59); #Neutrophils 4.3 thou/uL (1.40-6.50); %Basophils 0.2 % (0.0-1.0); %Eosinophils 3.7 % (0.0-10.0); %Lymphocytes 20.8 % (21.0-51.0); Hematocrit 43.7 % (36.0-47.0); Hemoglobin 13.9 g/dL (12.0-16.0); Mean Corpuscular HGB CONC 31.8 g/dL (32.0-36.0); Mean Corpuscular Hemoglobin 28.4 pg (27.0-31.0); Mean Corpuscular Volume 89.2 fl (78.0-98.0); Mean Platelet Volume 11.3 fL (7.4-10.4); Platelet Count 144 10x3/uL (130-400); RBC Distribution Width 15.3 % (11.5-14.5); White Blood Cell (WBC) Count 6.5 10x3/uL (4.8-10.8)
[2023-07-13 18:15] LABS: Troponin I 0.051 ng/mL (< 0.028)
[2023-07-13 18:21] LABS: ALT (SGPT) 14 U/L (8-55); AST (SGOT) 31 U/L (5-34); Albumin 4.2 g/dL (3.4-4.8); Alkaline Phosphatase 86 U/L (40-110); Anion Gap 18 mmol/L (10-20); BUN (Urea Nitrogen) 22 mg/dL (9.8-20.1); Bilirubin, Total 2.7 mg/dL (0.2-1.2); Calc. Creatinine Clearance 0 mL/min (70-130); Calcium 9.6 mg/dL (7.8-10.44); Carbon Dioxide 24 mmol/L (23-31); Chloride 101 mmol/L (98-107); Estimated GFR 34; Globulin 3.1 g/dL (2.4-3.5); Glucose 94 mg/dL (83-110); Potassium 4.3 mmol/L (3.5-5.1); Protein, Total 7.3 g/dL (5.8-8.1); Sodium 139 mmol/L (136-145)
[2023-07-13] MEDS ORDERED: Amiodarone 150 MG/3 ML VIAL ONE (19:14)
[2023-07-13] MEDS ORDERED: Amiodarone 450 MG, Admixture Fee 1 EACH in Dextrose 5% in Water 250 ML IVPB SCH (19:30)
[2023-07-13] MEDS ORDERED: Acetaminophen 325 MG TAB PO PRN (19:32)
[2023-07-13] MEDS ORDERED: Electrolyte Replacement Protocol 1 EACH FS SCH (20:45)
[2023-07-13] MEDS: Apixaban 2.5 MG TAB PO SCH (20:52)
[2023-07-14] MEDS: Amiodarone 450 MG, Admixture Fee 1 EACH in Dextrose 5% in Water 250 ML IVPB SCH ×2 (02:29→15:10)
[2023-07-14 03:34] LABS: #Eosinphils 0.2 thou/uL (0.0-0.7); #Monocytes 0.8 thou/uL (0.11-0.59); %Basophils 0.1 % (0.0-1.0); %Eosinophils 3.2 % (0.0-10.0); %Lymphocytes 14.3 % (21.0-51.0); %Monocytes 11.3 % (0.0-10.0); %Neutrophils 70.7 % (42.0-75.0); Hematocrit 38.1 % (36.0-47.0); Hemoglobin 12.1 g/dL (12.0-16.0); Mean Corpuscular HGB CONC 31.8 g/dL (32.0-36.0); Mean Corpuscular Hemoglobin 28.1 pg (27.0-31.0); Mean Corpuscular Volume 88.4 fl (78.0-98.0); Mean Platelet Volume 11.2 fL (7.4-10.4); Platelet Count 115 10x3/uL (130-400); RBC Distribution Width 15.1 % (11.5-14.5); Red Blood Cell (RBC) Count 4.31 mill/uL (4.20-5.40); White Blood Cell (WBC) Count 7.1 10x3/uL (4.8-10.8)
[2023-07-14 04:44] LABS: Anion Gap 15 mmol/L (10-20); BUN (Urea Nitrogen) 23 mg/dL (9.8-20.1); Calc. Creatinine Clearance 37 mL/min (70-130); Calcium 9.4 mg/dL (7.6-10.4); Carbon Dioxide 26 mmol/L (23-31); Chloride 102 mmol/L (98-107); Estimated GFR 33; Glucose 105 mg/dL (83-110); Potassium 3.3 mmol/L (3.5-5.1); Sodium 140 mmol/L (136-145)
[2023-07-14 04:45] LABS: Albumin 3.7 g/dL (3.4-4.8); Bilirubin, Direct 1.3 mg/dL (0.1-0.3); Bilirubin, Total 2.9 mg/dL (0.2-1.2); Protein, Total 6.3 g/dL (5.8-8.1)
[2023-07-14 04:46] LABS: ALT (SGPT) 12 U/L (8-55); AST (SGOT) 17 U/L (5-34); Alkaline Phosphatase 75 U/L (40-110)
[2023-07-14] MEDS: Furosemide 20 MG/2 ML VIAL SLOW IVP SCH ×2 (06:03→15:10)
[2023-07-14 07:06] LABS: Troponin I 0.038 ng/mL (< 0.028)
[2023-07-14] MEDS ORDERED: Magnesium 2 GM/50 ML(in water) 2 GM in Premix 1 BAG IVPB SCH (08:00)
[2023-07-14] MEDS ORDERED: Potassium Chloride 20 MEQ TAB PO SCH (08:00)
[2023-07-14] MEDS: Carvedilol 3.125 MG TAB PO SCH ×2 (09:52→16:45)
[2023-07-14] MEDS: Apixaban 2.5 MG TAB PO SCH (09:52)
[2023-07-14] MEDS: Apixaban 5 MG TAB PO SCH (22:26)
[2023-07-15] MEDS: Amiodarone 450 MG, Admixture Fee 1 EACH in Dextrose 5% in Water 250 ML IVPB SCH ×2 (07:33→23:00)
[2023-07-15] MEDS: Furosemide 20 MG/2 ML VIAL SLOW IVP SCH (07:42)
[2023-07-15] MEDS: Apixaban 5 MG TAB PO SCH ×2 (10:11→20:08)
[2023-07-15] MEDS: Carvedilol 3.125 MG TAB PO SCH ×2 (10:11→17:48)
[2023-07-15] MEDS: Spironolactone 25 MG TAB PO SCH (10:12)
[2023-07-15] MEDS: DOBUTamine 500 mg/250 ml 250 ML IVPB SCH (13:29)
[2023-07-15 14:03] LABS: Bilirubin Negative (Negative); Blood, Urine 1+ (Negative); Clarity Turbid (Clear); Glucose, Urine (Dipstick) Normal (Negative); Ketone, Urine Negative (Negative); Leukocyte 500 Leu/uL (Negative); Nitrite Negative (Negative); Protein, Urine (Dipstick) 30 mg/dL (Neg-Trace); Specific Gravity, Urine 1.007 (1.002-1.036)
[2023-07-15 14:18] LABS: Bacteria/HPF 2+ HPF (None Seen)
[2023-07-15] MEDS: Furosemide 40 MG/4 ML VIAL SLOW IVP SCH (14:48)
[2023-07-15] MEDS ORDERED: Potassium Chloride 20 MEQ TAB PO SCH (15:45)
[2023-07-16 05:00] LABS: #Eosinphils 0.2 thou/uL (0.0-0.7); #Neutrophils 5.4 thou/uL (1.40-6.50); %Basophils 0.1 % (0.0-1.0); %Eosinophils 3.1 % (0.0-10.0); %Lymphocytes 14.8 % (21.0-51.0); %Monocytes 12.6 % (0.0-10.0); Hemoglobin 12.6 g/dL (12.0-16.0); Mean Corpuscular HGB CONC 31.5 g/dL (32.0-36.0); Mean Corpuscular Hemoglobin 27.7 pg (27.0-31.0); Mean Corpuscular Volume 87.9 fl (78.0-98.0); Mean Platelet Volume 11.9 fL (7.4-10.4); Platelet Count 105 10x3/uL (130-400); RBC Distribution Width 15.2 % (11.5-14.5); Red Blood Cell (RBC) Count 4.55 mill/uL (4.20-5.40); White Blood Cell (WBC) Count 7.8 10x3/uL (4.8-10.8)
[2023-07-16 05:24] LABS: Anion Gap 12 mmol/L (10-20); BUN (Urea Nitrogen) 23 mg/dL (9.8-20.1); Calc. Creatinine Clearance 38 mL/min (70-130); Calcium 8.7 mg/dL (7.8-10.44); Carbon Dioxide 28 mmol/L (23-31); Chloride 101 mmol/L (98-107); Estimated GFR 34; Glucose 83 mg/dL (83-110); Potassium 3.7 mmol/L (3.5-5.1); Sodium 137 mmol/L (136-145)
[2023-07-16] MEDS: Furosemide 40 MG/4 ML VIAL SLOW IVP SCH ×2 (06:19→16:47)
[2023-07-16] MEDS ORDERED: FLU VACC QS2023(65UP)/MF59C/PF 60 MCG/0.5 ML SYRINGE IM ONE (09:00)
[2023-07-16] MEDS: Apixaban 5 MG TAB PO SCH ×2 (10:20→20:46)
[2023-07-16] MEDS: Carvedilol 3.125 MG TAB PO SCH ×2 (10:20→16:47)
[2023-07-16] MEDS: Spironolactone 25 MG TAB PO SCH (10:20)
[2023-07-16] MEDS: DOBUTamine 500 mg/250 ml 250 ML IVPB SCH (10:24)
[2023-07-17] MEDS: DOBUTamine 500 mg/250 ml 250 ML IVPB SCH (05:43)
[2023-07-17] MEDS: Amiodarone 450 MG, Admixture Fee 1 EACH in Dextrose 5% in Water 250 ML IVPB SCH ×2 (05:43→21:38)
[2023-07-17] MEDS: Furosemide 40 MG/4 ML VIAL SLOW IVP SCH ×2 (05:51→13:15)
[2023-07-17 07:36] LABS: #Eosinphils 0.2 thou/uL (0.0-0.7); #Monocytes 1.2 thou/uL (0.11-0.59); #Neutrophils 6.2 thou/uL (1.40-6.50); %Basophils 0.1 % (0.0-1.0); %Eosinophils 2.7 % (0.0-10.0); %Lymphocytes 11.5 % (21.0-51.0); %Monocytes 13.4 % (0.0-10.0); %Neutrophils 71.8 % (42.0-75.0); Hematocrit 39.7 % (36.0-47.0); Hemoglobin 12.5 g/dL (12.0-16.0); Mean Corpuscular HGB CONC 31.5 g/dL (32.0-36.0); Mean Corpuscular Hemoglobin 28.2 pg (27.0-31.0); Mean Corpuscular Volume 89.6 fl (78.0-98.0); Mean Platelet Volume 11.2 fL (7.4-10.4); RBC Distribution Width 15.5 % (11.5-14.5); Red Blood Cell (RBC) Count 4.43 mill/uL (4.20-5.40); White Blood Cell (WBC) Count 8.6 10x3/uL (4.8-10.8)
[2023-07-17] MEDS: Spironolactone 25 MG TAB PO SCH (07:47)
[2023-07-17 07:52] LABS: Platelet Count 121 10x3/uL (130-400)
[2023-07-17 08:05] LABS: Anion Gap 13 mmol/L (10-20); BUN (Urea Nitrogen) 18 mg/dL (9.8-20.1); Calc. Creatinine Clearance 46 mL/min (70-130); Calcium 8.7 mg/dL (7.8-10.44); Carbon Dioxide 30 mmol/L (23-31); Chloride 97 mmol/L (98-107); Estimated GFR 42; Glucose 86 mg/dL (83-110); Potassium 3.4 mmol/L (3.5-5.1); Sodium 137 mmol/L (136-145)
[2023-07-17] MEDS: Apixaban 5 MG TAB PO SCH ×2 (08:30→20:13)
[2023-07-17] MEDS ORDERED: Potassium Chloride 20 MEQ TAB PO SCH (09:00)
[2023-07-17] MEDS: Carvedilol 3.125 MG TAB PO SCH ×2 (09:47→16:07)
[2023-07-18] MEDS: Furosemide 40 MG/4 ML VIAL SLOW IVP SCH ×2 (05:32→13:06)
[2023-07-18 05:45] LABS: Anion Gap 13 mmol/L (10-20); BUN (Urea Nitrogen) 20 mg/dL (9.8-20.1); Calc. Creatinine Clearance 45 mL/min (70-130); Calcium 8.6 mg/dL (7.8-10.44); Carbon Dioxide 33 mmol/L (23-31); Chloride 95 mmol/L (98-107); Estimated GFR 41; Glucose 84 mg/dL (83-110); Potassium 4.1 mmol/L (3.5-5.1); Sodium 137 mmol/L (136-145)
[2023-07-18] MEDS: Spironolactone 25 MG TAB PO SCH (07:58)
[2023-07-18] MEDS: Carvedilol 3.125 MG TAB PO SCH ×3 (07:58→17:18)
[2023-07-18] MEDS: Apixaban 5 MG TAB PO SCH ×2 (07:58→22:14)
[2023-07-18] MEDS: Amiodarone 450 MG, Admixture Fee 1 EACH in Dextrose 5% in Water 250 ML IVPB SCH (12:59)
[2023-07-18] MEDS: DOBUTamine 500 mg/250 ml 250 ML IVPB SCH (22:16)
[2023-07-19] MEDS: Amiodarone 450 MG, Admixture Fee 1 EACH in Dextrose 5% in Water 250 ML IVPB SCH (01:17)
[2023-07-19 06:03] LABS: #Eosinphils 0.4 thou/uL (0.0-0.7); #Monocytes 1.1 thou/uL (0.11-0.59); #Neutrophils 5.6 thou/uL (1.40-6.50); %Basophils 0.1 % (0.0-1.0); %Eosinophils 5.1 % (0.0-10.0); %Lymphocytes 16.3 % (21.0-51.0); %Monocytes 12.5 % (0.0-10.0); %Neutrophils 65.6 % (42.0-75.0); Hematocrit 39.8 % (36.0-47.0); Hemoglobin 12.8 g/dL (12.0-16.0); Mean Corpuscular HGB CONC 32.2 g/dL (32.0-36.0); Mean Corpuscular Hemoglobin 28.1 pg (27.0-31.0); Mean Corpuscular Volume 87.3 fl (78.0-98.0); Mean Platelet Volume 10.4 fL (7.4-10.4); Platelet Count 143 10x3/uL (130-400); RBC Distribution Width 15.3 % (11.5-14.5); Red Blood Cell (RBC) Count 4.56 mill/uL (4.20-5.40); White Blood Cell (WBC) Count 8.6 10x3/uL (4.8-10.8)
[2023-07-19] MEDS: Furosemide 40 MG/4 ML VIAL SLOW IVP SCH (06:08)
[2023-07-19 06:29] LABS: Anion Gap 12 mmol/L (10-20); BUN (Urea Nitrogen) 18 mg/dL (9.8-20.1); Calc. Creatinine Clearance 48 mL/min (70-130); Calcium 8.7 mg/dL (7.8-10.44); Carbon Dioxide 35 mmol/L (23-31); Chloride 94 mmol/L (98-107); Estimated GFR 45; Glucose 79 mg/dL (83-110); Potassium 3.9 mmol/L (3.5-5.1); Sodium 137 mmol/L (136-145)
[2023-07-19] MEDS ORDERED: Ketamine In 0.9 % NaCl 50 MG/5 ML SYRINGE ONE (07:31)
[2023-07-19] MEDS ORDERED: PROPOFOL 200 MG/20 ML VIAL ONE (07:50)
[2023-07-19] MEDS ORDERED: Furosemide 20 MG TAB PO SCH (09:00)
[2023-07-19] MEDS: Carvedilol 3.125 MG TAB PO SCH ×2 (09:40→16:07)
[2023-07-19] MEDS: Sacubitril 24MG/Valsartan 26 MG TAB PO SCH ×2 (09:49→21:15)
[2023-07-19] MEDS: Furosemide 40 MG TAB PO SCH ×2 (09:49→16:07)
[2023-07-19] MEDS: Spironolactone 25 MG TAB PO SCH (09:50)
[2023-07-19] MEDS: Amiodarone 200 MG TAB PO SCH ×2 (09:50→21:15)
[2023-07-19] MEDS: Apixaban 5 MG TAB PO SCH ×2 (09:50→21:15)
[2023-07-19] MEDS: Empagliflozin 10 MG TAB PO SCH (09:51)
[2023-07-19] MEDS ORDERED: Senokot S 8.6-50 MG TAB PO SCH (17:15)
[2023-07-19] MEDS ORDERED: Polyethylene Glycol 3350 17 GM Packet PO SCH (17:30)
[2023-07-20 06:21] VITALS: BMI 27.8
[2023-07-20] MEDS: Amiodarone 200 MG TAB PO SCH ×2 (07:47→23:03)
[2023-07-20] MEDS: Carvedilol 3.125 MG TAB PO SCH ×2 (07:47→16:15)
[2023-07-20] MEDS: Polyethylene Glycol 3350 17 GM Packet PO SCH (08:45)
[2023-07-20] MEDS: Apixaban 5 MG TAB PO SCH ×2 (08:46→23:03)
[2023-07-20] MEDS: Empagliflozin 10 MG TAB PO SCH (08:46)
[2023-07-20] MEDS: Sacubitril 24MG/Valsartan 26 MG TAB PO SCH ×2 (08:46→23:03)
[2023-07-20] MEDS: Furosemide 40 MG TAB PO SCH ×2 (08:46→15:29)
[2023-07-21] MEDS: Furosemide 40 MG TAB PO SCH ×2 (09:36→13:52)
[2023-07-21] MEDS: Polyethylene Glycol 3350 17 GM Packet PO SCH (09:37)
[2023-07-21] MEDS: Apixaban 5 MG TAB PO SCH (09:37)
[2023-07-21] MEDS: Sacubitril 24MG/Valsartan 26 MG TAB PO SCH (09:37)
[2023-07-21] MEDS: Empagliflozin 10 MG TAB PO SCH (09:37)
[2023-07-21] MEDS: Amiodarone 200 MG TAB PO SCH (09:37)
[2023-07-21 16:04] VITALS: BP 110/59; TEMP 97.5
== END 2023-07-21 17:50 | disposition home or self-care (01) | DRG 308 ==
LOC: ERS 16:58 → IMCU/EMU 18:54 → 2NO 07-14 17:21
PROVIDERS: ADMIT Family Medicine; ATTEND Family Medicine
PROC: 5A2204Z Restoration of Cardiac Rhythm, Single (ICD-10-PCS; principal; 2023-07-19)
DX: I48.91 Unspecified atrial fibrillation (principal); I13.0 Hypertensive heart and chronic kidney disease with heart failure and stage 1 through stage 4 chronic kidney disease, or unspecified chronic kidney disease; I50.23 Acute on chronic systolic (congestive) heart failure; N17.9 Acute kidney failure, unspecified; I42.0 Dilated cardiomyopathy; I27.20 Pulmonary hypertension, unspecified; N18.30 Chronic kidney disease, stage 3 unspecified; E87.6 Hypokalemia; D69.6 Thrombocytopenia, unspecified; I07.1 Rheumatic tricuspid insufficiency; Z83.3 Family history of diabetes mellitus; Z88.0 Allergy status to penicillin; Z79.01 Long term (current) use of anticoagulants; Z79.899 Other long term (current) drug therapy
CPT/HCPCS: 36415; 71045; 76770; 80048; 80053; 80076; 81001; 83735; 83880; 84443; 84484; 85025; 92960; 93005; 93010; 93312; 96365; 96375; J0282; J1250; J1940; J2704; J3475; J3490; J7070

== ENCOUNTER 2024-07-23 18:56 | Emergency (ER) | payer MEDICARE ==
[2024-07-23 20:05] LABS: #Basophils Less than 0.03 10x3/uL (0.0-0.2); %Basophils 0.2 % (0.0-1.0); %Eosinophils 3.8 % (0.0-10.0); %Lymphocytes 22.4 % (21.0-51.0); %Monocytes 11.3 % (0.0-10.0); %Neutrophils 62.1 % (42.0-75.0); Hematocrit 40.1 % (36.0-47.0); Hemoglobin 12.7 g/dL (12.0-16.0); Mean Corpuscular HGB CONC 31.7 g/dL (32.0-36.0); Mean Corpuscular Hemoglobin 27.9 pg (27.0-31.0); Mean Corpuscular Volume 88.1 fL (78.0-98.0); Mean Platelet Volume 10.8 fL (7.4-10.4); Platelet Count 137 10x3/uL (130-400); RBC Distribution Width 15.1 % (11.5-14.5); Red Blood Cell (RBC) Count 4.55 mill/uL (4.20-5.40)
[2024-07-23 20:17] LABS: ALT (SGPT) 10 U/L (8-55); AST (SGOT) 24 U/L (5-34); Albumin 3.9 g/dL (3.4-4.8); Alkaline Phosphatase 81 U/L (40-110); Anion Gap 15 mmol/L (10-20); BUN (Urea Nitrogen) 15 mg/dL (9.8-20.1); Bilirubin, Total 1.4 mg/dL (0.2-1.2); Calc. Creatinine Clearance 0 mL/min (70-130); Calcium 9.2 mg/dL (7.8-10.44); Carbon Dioxide 29 mmol/L (23-31); Chloride 104 mmol/L (98-107); Estimated GFR 40; Globulin 3.1 g/dL (2.4-3.5); Glucose 114 mg/dL (83-110); Potassium 3.4 mmol/L (3.5-5.1); Sodium 145 mmol/L (136-145)
[2024-07-23 20:53] LABS: Troponin I 0.035 ng/mL (< 0.028)
[2024-07-23 21:03] LABS: Bilirubin Negative (Negative); Blood, Urine 1+ (Negative); CAUTI Indications for Culture Pelvic or flank pain; Clarity Clear (Clear); Glucose, Urine (Dipstick) Greater than 1000 mg/dL (Negative); Ketone, Urine Negative (Negative); Leukocyte 500 Leu/uL (Negative); Nitrite Negative (Negative); Protein, Urine (Dipstick) 20 mg/dL (Neg-Trace); Specific Gravity, Urine 1.016 (1.002-1.036); Urobilinogen Normal mg/dL (Less than 2); WBC/HPF Greater than 50 HPF (0-3); pH, Urine 5.5 (5.0-9.0)
[2024-07-23 21:04] LABS: Bacteria/HPF Rare-Few HPF (None Seen)
[2024-07-23 21:05] LABS: Urine Culture Reflex Yes Yes
[2024-07-23] MEDS ORDERED: Furosemide 40 MG (4 mL) VIAL ONE (22:05)
== END 2024-07-23 22:40 | disposition home or self-care (01) ==
LOC: ERS 18:56
DX: I11.0 Hypertensive heart disease with heart failure (principal); I50.9 Heart failure, unspecified
CPT/HCPCS: 71045; 80053; 81001; 83880; 84484; 85025; 87086; 93005; J1940; 36415; 87077; 96374